=== PATIENT | female | born 1940 | race Caucasian/White ===

== ENCOUNTER 2017-08-12 08:21 | Inpatient (IN) | payer OTHER ==
[2017-08-12] MEDS ORDERED: NS 500 ML IV 500 ML IV ONE (09:06)
[2017-08-12] MEDS ORDERED: TYLENOL 325 MG TAB PO PRN (09:06)
[2017-08-12] MEDS ORDERED: BENADRYL INJ 50 MG VIAL IVP PRN (09:06)
[2017-08-12 09:59] LABS: BASOPHILS % (AUTO) 0.6 % (0.2-1.0); EOSINOPHILS % (AUTO) 0.3 % (0.9-2.9); LYMPHOCYTES # (AUTO) 1.5 X10^3/uL (1.3-2.9); LYMPHOCYTES % (AUTO) 19.9 % (21.0-51.0); MEAN CORPUSCULAR HEMOGLOBIN 18.8 pg (27.0-34.0); MEAN CORPUSCULAR HGB CONC 30.5 g/dL (33.0-35.0); MEAN CORPUSCULAR VOLUME 61.7 fL (80.0-100.0); MEAN PLATELET VOLUME 8.7 fL (7.4-11.0); MONOCYTES # (AUTO) 0.5 x10^3/uL (0.3-0.8); MONOCYTES % (AUTO) 6.6 % (0.0-13.0); NEUTROPHILS # (AUTO) 5.6 x10^3/uL (2.2-4.8); NEUTROPHILS % (AUTO) 72.6 % (42.0-75.0); PLATELET COUNT 381 X10^3/uL (150.0-450.0); RED BLOOD COUNT 3.73 X10^6/uL (3.5-5.4); RED CELL DISTRIBUTION WIDTH 19.8 % (11.6-16.5); WHITE BLOOD COUNT 7.7 X10^3/uL (3.6-10.0)
--- NOTE | 2017-08-12 10:02 | RAD ---
STUDY: CHEST, ONE VIEW History: Anemia. Shortness of breath. Hypertension. Comparison: None. Findings: The trachea is midline. The lungs are clear of consolidation, significant infiltrate, effusion, or pn eumothorax. The cardiac silhouette, mediastinum and osseous structures are unremarkable. IMPRESSION: 1. No evidence of acute cardiopulmonary abnormality. Reported By:
[2017-08-12 10:26] LABS: HYPOCHROMASIA 3+; MICROCYTOSIS 2+; PLATELET MORPHOLOGY COMMENT NORMAL (NORMAL)
[2017-08-12 10:28] VITALS: BMI 31.2
--- NOTE | 2017-08-12 13:26 | DR.H&P ---
H&P - History & Physical for Day of: H&P Date: 08/12/17 - Chief Complaint Chief Complaint: anemic, shortness of breath on exertion - Allergies Allergies/Adverse Reactions: Allergies Allergy/AdvReac Type Severity Reaction Status Date / Time milk AdvReac Verified 05/08/17 08:39 - History of Present Illness History of Present Illness: PT IS 77 WF DIRECT ADMIT FROM DR NUNO OFFICE WITH SYMPTOMATIC ANEMIA. PT HAS SUFFERED WITH ANEMIA AND IRON DEF. PT HAD CBC LAST WEEK <8. PT HAS BEEN PRESCRIBED IRON, STATES SHE HAS BEEN TAKING DIRECTED. PT CO FATIGUE AND AND EXERTIONAL SOB. PLAN TO ADMIT FOR TRANSFUSION OF PRBC, ANEMIA PANEL - Past Medical History Past Medical History: Anemia, Arthritis, GERD, Hypertension - Past Surgical History Surgical History: Hysterectomy, Tonsillectomy - Social History Does patient currently use any type of tobacco product: No Have you used tobacco products in the last 12 months: No Type of Tobacco Use: None Does any household member use tobacco: No Alcohol Use: None Drug Use: None - Review of Systems Constitutional: Weakness Eyes: No Symptoms Reported ENT: No Symptoms Reported Respiratory: SOB with Excertion Cardiovascular: Edema Gastrointestinal: No Symptoms Reported Genitourinary: No Symptoms Reported Skin: No Symptoms Reported Neurological: No Symptoms Reported - Physical Exam Vital Signs: Temperature 98.6 F Pulse Rate [Brachial] 80 Blood Pressure [Right Arm] 145/67 Blood Pressure [Left Arm] 173/72 Blood Pressure 143/65 Oriented: Normal Eyes: Normal Ear: Normal Nose: Normal Throat: Normal Respiratory: Clear Throughout Cardiovascular: Normal : Normal Auscultation: Bowel Sounds: Normal Palpation: Normal Tenderness: Normal Skin: Other (DIFFUSE PALLOR) Musculoskeletal: Normal Psychiatric: Anxiety Speech Pattern: Clear, Appropriate - Assessment/Plan (1) Anemia Qualifiers: Anemia type: iron deficiency Iron deficiency anemia type: chronic blood loss Qualified Code(s): D50.0 - Iron deficiency anemia secondary to blood loss (chronic) Status: Acute Plan: ADMIT, ANEMIA PANEL, ADMISSION LABS. OCCULT STOOL, TYPE AND CROSS AND TRANSFUSE PRBC. RESUME HOME MEDS, CXR AND EKG ON ADMISSION. REGULAR DIET (2) Exertional shortness of breath Status: Acute
[2017-08-12] MEDS ORDERED: PHARMACY CONSULT - DOSE _____ XX SCH (14:00)
[2017-08-12] MEDS ORDERED: DEXFERRUM or INFED 25 MG in NS 100 ML IV 100 ML IV NR (14:00)
[2017-08-12] MEDS ORDERED: LASIX ONE (14:31)
[2017-08-12] MEDS ORDERED: DEXFERRUM or INFED 975 MG in NS 500 ML IV 500 ML IV ONE (15:00)
[2017-08-12] MEDS ORDERED: LASIX IVP ONE (15:00)
[2017-08-12] MEDS: PROTONIX INJ 40 MG VIAL IVP SCH (21:52)
[2017-08-13 06:18] LABS: BASOPHILS # (AUTO) 0.1 X10^3/uL (0.0-0.1); EOSINOPHILS # (AUTO) 0.1 x10^3/uL (0.0-0.2); HEMATOCRIT 32.1 % (36.0-47.0); LYMPHOCYTES # (AUTO) 2.4 X10^3/uL (1.3-2.9); MEAN CORPUSCULAR HEMOGLOBIN 22.5 pg (27.0-34.0); MEAN CORPUSCULAR HGB CONC 32.4 g/dL (33.0-35.0); MEAN CORPUSCULAR VOLUME 69.3 fL (80.0-100.0); MEAN PLATELET VOLUME 9.2 fL (7.4-11.0); MONOCYTES # (AUTO) 0.6 x10^3/uL (0.3-0.8); MONOCYTES % (AUTO) 7.4 % (0.0-13.0); NEUTROPHILS # (AUTO) 4.7 x10^3/uL (2.2-4.8); NEUTROPHILS % (AUTO) 59.6 % (42.0-75.0); PLATELET COUNT 383 X10^3/uL (150.0-450.0); RED BLOOD COUNT 4.63 X10^6/uL (3.5-5.4); WHITE BLOOD COUNT 7.8 X10^3/uL (3.6-10.0)
[2017-08-13 06:25] LABS: HEMOGLOBIN 10.4 g/dL (12.0-16.0)
[2017-08-13 06:35] LABS: ANISOCYTOSIS 3+; HYPOCHROMASIA 1+; MICROCYTOSIS 1+; PLATELET MORPHOLOGY COMMENT NORMAL (NORMAL)
[2017-08-13] MEDS ORDERED: DEXFERRUM or INFED 25 MG in NS 100 ML IV 100 ML IV ONE (08:00)
[2017-08-13] MEDS: PROTONIX INJ 40 MG VIAL IVP SCH (08:15)
[2017-08-13] MEDS ORDERED: NS 250 ML IV 250 ML IV ONE (08:17)
[2017-08-13] MEDS ORDERED: DEXFERRUM or INFED 975 MG in NS 500 ML IV 500 ML IV ONE (09:00)
[2017-08-13 11:50] VITALS: BP 126/58
== END 2017-08-13 13:50 | disposition home or self-care (01) | DRG 812 ==
LOC: ICU 08:21
PROVIDERS: ADMIT Internal Medicine; ATTEND Internal Medicine
PROC: 30233N1 Transfusion of Nonautologous Red Blood Cells into Peripheral Vein, Percutaneous Approach (ICD-10-PCS; principal; 2017-08-11)
PROC: 30233N1 Transfusion of Nonautologous Red Blood Cells into Peripheral Vein, Percutaneous Approach (ICD-10-PCS; 2017-08-11)
DX: D50.0 Iron deficiency anemia secondary to blood loss (chronic) (principal); R06.02 Shortness of breath; R94.31 Abnormal electrocardiogram [ECG] [EKG]
CPT/HCPCS: 36415; 36430; 71045; 82607; 82728; 82746; 83540; 84466; 85025; 86850; 86900; 86901; 86922; 93005; 93010; A4222; P9016; J1200; J1750; J1940